=== PATIENT | female | born 1945 | race Caucasian/White ===

== ENCOUNTER 2021-02-04 09:21 | Outpatient (CLI) | payer MEDICARE, BC | END 2021-02-04 09:22 | disposition home or self-care (01) | LOC: CSHMAMMO 09:21 | PROVIDERS: ATTEND Obstetrics & Gynecology | DX: N63.10 Unspecified lump in the right breast, unspecified quadrant (principal) | CPT/HCPCS: 76642; 77065; G0279 ==

== ENCOUNTER 2023-02-26 16:06 | Inpatient (IN) | payer BC, MEDICARE, OTHER ==
[2023-02-26] MEDS ORDERED: Ondansetron PF 4 MG/2 ML Vial ONE (17:23)
[2023-02-26] MEDS ORDERED: Morphine 4 MG/ML VIAL ONE ×2 (17:23→18:21)
[2023-02-26 18:12] LABS: #Monocytes 0.5 10x3/uL (0.0-1.1); #Neutrophils 10.2 10x3/uL (1.5-8.4); %Basophils 0.3 % (0.0-2.0); %Eosinophils 0.3 % (0.0-6.0); %Lymphocytes 6.6 % (18.0-47.0); %Neutrophils 88.3 % (40.0-75.0); Hemoglobin 13.3 g/dL (12.0-15.5); Mean Corpuscular HGB CONC 33.7 g/dL (32.0-36.0); Mean Corpuscular Hemoglobin 29.3 pg (27.0-33.0); Mean Platelet Volume 9.7 fl (7.4-10.4); Platelet Count 210 10x3/uL (150-450); RBC Distribution Width 13.1 % (11.5-14.5); Red Blood Cell (RBC) Count 4.54 10x6/uL (3.90-5.03); White Blood Cell (WBC) Count 11.6 10x3/uL (3.5-10.5)
[2023-02-26 18:23] LABS: PTT 24.5 sec (22.0-33.0); Prothrombin Time 10.8 sec (9.5-12.1)
[2023-02-26 18:26] LABS: ALT (SGPT) 22 U/L (8-55); AST (SGOT) 33 U/L (5-34); Albumin 4.3 g/dL (3.4-4.8); Alkaline Phosphatase 70 U/L (40-110); Anion Gap 16 mmol/L (10-20); BUN (Urea Nitrogen) 26 mg/dL (9.8-20.1); Bilirubin, Total 1.6 mg/dL (0.2-1.2); Calc. Creatinine Clearance 0 mL/min (70-130); Carbon Dioxide 23 mmol/L (23-31); Chloride 107 mmol/L (98-107); Estimated GFR 43; Globulin 2.8 g/dL (2.4-3.5); Glucose 127 mg/dL (83-110); Potassium 3.8 mmol/L (3.5-5.1); Protein, Total 7.1 g/dL (5.8-8.1); Sodium 142 mmol/L (136-145)
[2023-02-26] MEDS ORDERED: Ondansetron PF 4 MG/2 ML Vial IVP PRN (18:41)
[2023-02-26] MEDS ORDERED: HYDROcodone/Acetaminophen 10/325 mg Tablet PO PRN (18:41)
[2023-02-26] MEDS ORDERED: Acetaminophen 325 MG TAB PO PRN (18:41)
[2023-02-26] MEDS ORDERED: Morphine 2 MG/ML VIAL SLOW IVP PRN (18:50)
[2023-02-26 22:30] VITALS: BMI 20.1
[2023-02-26] MEDS ORDERED: Heparin 5,000 UNITS/ML VIAL SC SCH (22:30)
[2023-02-26] MEDS: Sodium Chloride 0.9% 1,000 ML IV SCH (22:42)
[2023-02-26] MEDS ORDERED: Famotidine 20 MG TAB PO SCH (22:45)
[2023-02-27 03:39] LABS: Anion Gap 12 mmol/L (10-20); BUN (Urea Nitrogen) 23 mg/dL (9.8-20.1); Calc. Creatinine Clearance 29 mL/min (70-130); Calcium 9.4 mg/dL (7.8-10.44); Carbon Dioxide 30 mmol/L (23-31); Chloride 105 mmol/L (98-107); Estimated GFR 45; Glucose 124 mg/dL (83-110); Potassium 4.5 mmol/L (3.5-5.1); Sodium 142 mmol/L (136-145)
[2023-02-27 04:12] LABS: #Monocytes 0.4 10x3/uL (0.0-1.1); #Neutrophils 6.3 10x3/uL (1.5-8.4); %Basophils 0.3 % (0.0-2.0); %Neutrophils 87.4 % (40.0-75.0); Hemoglobin 12.3 g/dL (12.0-15.5); Mean Corpuscular HGB CONC 32.8 g/dL (32.0-36.0); Mean Corpuscular Hemoglobin 29.1 pg (27.0-33.0); Mean Corpuscular Volume 88.9 fl (81.6-98.3); Mean Platelet Volume 9.9 fl (7.4-10.4); Platelet Count 180 10x3/uL (150-450); RBC Distribution Width 13.2 % (11.5-14.5); Red Blood Cell (RBC) Count 4.22 10x6/uL (3.90-5.03); White Blood Cell (WBC) Count 7.3 10x3/uL (3.5-10.5)
[2023-02-27] MEDS: Sodium Chloride 0.9% 1,000 ML IV SCH (10:11)
[2023-02-27] MEDS: Heparin 5,000 UNITS/ML VIAL SC SCH ×3 (10:19→21:40)
[2023-02-27] MEDS ORDERED: Bupivacaine HCl 0.5%/Epinephrine 1:200,000/PF 30 ml Vial ONE (13:28)
[2023-02-27] MEDS ORDERED: Neomycin-Polymyxin 1 ML AMP ONE (13:28)
[2023-02-27] MEDS ORDERED: fentaNYL 50 mcg/mL 1 mL Vial ONE ×2 (13:32)
[2023-02-27] MEDS ORDERED: PROPOFOL 20 ML ONE (13:32)
[2023-02-27] MEDS ORDERED: Ondansetron PF 4 MG/2 ML Vial ONE (13:33)
[2023-02-27] MEDS ORDERED: CEFAZOLIN 2 GM VIAL ONE (14:05)
[2023-02-27] MEDS ORDERED: Morphine 4 MG/ML VIAL SLOW IVP PRN (14:11)
[2023-02-27] MEDS ORDERED: Communication Order-Pharmacy FS SCH (14:15)
[2023-02-27] MEDS ORDERED: Tranexamic Acid 1,000 MG/10 ML VIAL ONE ×2 (14:23→15:23)
[2023-02-27] MEDS ORDERED: Tranexamic Acid 1,000 MG in Sodium Chloride 0.9% 100 ML IVPB SCH (15:30)
[2023-02-27] MEDS ORDERED: Tranexamic Acid 1,000 MG/10 ML VIAL IVP SCH (15:30)
[2023-02-27] MEDS: Famotidine 20 MG TAB PO SCH (21:39)
[2023-02-27] MEDS: Aspirin 81 mg Enteric Coated Tablet PO SCH (21:39)
[2023-02-27] MEDS: CEFAZOLIN 2 GM in Sodium Chloride 0.9% 100 ML IVPB SCH (21:41)
[2023-02-28] MEDS: Sodium Chloride 0.9% 1,000 ML IV SCH ×2 (02:21→11:00)
[2023-02-28 04:15] LABS: #Monocytes 0.4 10x3/uL (0.0-1.1); #Neutrophils 5.6 10x3/uL (1.5-8.4); %Basophils 0.2 % (0.0-2.0); %Eosinophils 0.2 % (0.0-6.0); %Lymphocytes 9.1 % (18.0-47.0); %Monocytes 6.2 % (0.0-10.0); %Neutrophils 84.1 % (40.0-75.0); Hemoglobin 10.3 g/dL (12.0-15.5); Mean Corpuscular HGB CONC 32.4 g/dL (32.0-36.0); Mean Corpuscular Hemoglobin 29.3 pg (27.0-33.0); Mean Corpuscular Volume 90.3 fl (81.6-98.3); Mean Platelet Volume 10.5 fl (7.4-10.4); Platelet Count 142 10x3/uL (150-450); RBC Distribution Width 13.4 % (11.5-14.5); Red Blood Cell (RBC) Count 3.52 10x6/uL (3.90-5.03); White Blood Cell (WBC) Count 6.6 10x3/uL (3.5-10.5)
[2023-02-28] MEDS: CEFAZOLIN 2 GM in Sodium Chloride 0.9% 100 ML IVPB SCH (05:20)
[2023-02-28] MEDS: Heparin 5,000 UNITS/ML VIAL SC SCH ×3 (08:50→22:26)
[2023-02-28] MEDS: Aspirin 81 mg Enteric Coated Tablet PO SCH ×2 (08:50→22:27)
[2023-02-28] MEDS: Famotidine 20 MG TAB PO SCH (22:26)
[2023-03-01] MEDS: Sodium Chloride 0.9% 1,000 ML IV SCH (04:20)
[2023-03-01] MEDS: Heparin 5,000 UNITS/ML VIAL SC SCH ×3 (09:10→20:43)
[2023-03-01] MEDS: Aspirin 81 mg Enteric Coated Tablet PO SCH ×2 (09:11→20:43)
[2023-03-01 15:59] LABS: Bilirubin Neg (Negative); Blood, Urine 50 (Negative); Clarity Clear (Clear); Glucose, Urine (Dipstick) 100 mg/dL (Negative); Ketone, Urine Negative (Negative); Leukocyte 100 (Negative); Nitrite Negative (Negative); Protein, Urine (Dipstick) 30 mg/dl (Neg-Trace); Urobilinogen Normal mg/dL (Less than 2)
[2023-03-01 16:09] LABS: CAUTI Indications for Culture Fever or rigors; RBC/HPF 0-3 HPF (0-3); Squamous Epithelial 0-3 HPF (0-3); WBC/HPF 0-3 HPF (0-3)
[2023-03-01 16:10] LABS: Bacteria/HPF 1+ HPF (None Seen); Urine Culture Reflex No No
[2023-03-01] MEDS ORDERED: Famotidine 20 MG TAB PO SCH (21:00)
[2023-03-02 07:04] VITALS: TEMP 97.6
[2023-03-02] MEDS: Aspirin 81 mg Enteric Coated Tablet PO SCH (08:10)
[2023-03-02] MEDS: Heparin 5,000 UNITS/ML VIAL SC SCH (08:10)
[2023-03-02 10:30] VITALS: BP 115/54
== END 2023-03-02 12:31 | disposition home health service (06) | DRG 522 ==
LOC: CSHERS 16:06 → CSHTELE 18:12
PROVIDERS: ADMIT Internal Medicine; ATTEND Internal Medicine
PROC: 0SRS03A Replacement of Left Hip Joint, Femoral Surface with Ceramic Synthetic Substitute, Uncemented, Open Approach (ICD-10-PCS; principal; 2023-02-27)
DX: S72.012A Unspecified intracapsular fracture of left femur, initial encounter for closed fracture (principal); W01.0XXA Fall on same level from slipping, tripping and stumbling without subsequent striking against object, initial encounter; N18.30 Chronic kidney disease, stage 3 unspecified; Y92.096 Garden or yard of other non-institutional residence as the place of occurrence of the external cause; R33.9 Retention of urine, unspecified
CPT/HCPCS: 36415; 71045; 72170; 80048; 80053; 81001; 85025; 85610; 85730; 93005; 94760; 94762; 94799; 96374; 96375; 96376; C1713; C1776; J1644; J2270; J2405; J2704; J3010; J3490; J7050